=== PATIENT | female | born 1975 | race Caucasian/White ===

== ENCOUNTER 2020-06-30 12:09 | Outpatient (CLI) | payer OTHER, SELFPAY ==
--- NOTE | ~2020-06-30 | MMUS_ITS ---
EXAMINATION: MM diagnostic dm BI w phani, US breast BI complete HISTORY: Bilateral nipple discharge TECHNIQUE: ML, MLO and cc 3-D tomosynthesis images of both breasts and additional bilateral spots wer e performed and synthetic 2-D images were generated. CAD analysis was submitted and interpreted. High resolution bilateral complete breast ultrasound was performed. COMPARISON: None BREAST PARENCHYMAL COMPOSITION: The breasts are heterogeneously dense, which may obscure small masses . FINDINGS: MAMMOGRAPHIC FINDINGS: A 5 mm circumscribed opacity is noted posteriorly in the upper outer right breast. Otherwise no suspicious mass or architectural distortion, malignant calcification, skin thickening or retraction of either breast is evident. Due to the heterogeneous dense stroma, bilateral complete breast ultrasound examination was performed . ULTRASOUND: Right breast: 11:00: 3.7 x 4.6 x 4.4 mm hypoechoic lesion without internal vascularity or posterior features. Cristin ns are not completely circumscribed and the lesion is mildly antiparallel. Ultrasound-guided aspirati on or biopsy is recommended. 2:00: 2.4 mm sonolucency, likely a small cyst 3:00: Parallel circumscribed 4.0 x 1.5 x 2.3 mm minimally sonolucent lesion. No suspicious shadowing. . Left breast: No suspicious mass or shadowing. IMPRESSION: 1. Incompletely circumscribed hypoechoic antiparallel 4.6 mm lesion of right breast at 11:00 2. Ultrasound-guided aspiration or biopsy of right breast 11:00 lesion is recommended BI-RADS category 4, suspicious findings. Dr. Nicholas telephoned the report and ultrasound guided aspiration or biopsy recommendation to Julio César [employer] Systems Management Consultant , on 06/30/2020 at 1434 hours Reviewed, dictated and finalized at location A. L ASSEMBLER IMPRESSION: 1. Incompletely circumscribed hypoechoic antiparallel 4.6 mm lesion of right br east at 11:00 2. Ultrasound-guided aspiration or biopsy of right breast 11:00 lesion is recom mended BI-RADS category 4, suspicious findings. Dr. Nicholas telephoned the report and ultrasound guided aspiration or biopsy recom mendation to Kaylee, Polysomnographer , on 06/30/2020 at 1434 hours
== END 2020-06-30 12:10 | disposition home or self-care (01) ==
LOC: ANHIMG 12:14
PROVIDERS: PCP Nurse Practitioner Obstetrics & Gynecology; Visit Provider Nurse Practitioner Obstetrics & Gynecology
DX: N64.52 Nipple discharge (principal); R92.8 Other abnormal and inconclusive findings on diagnostic imaging of breast
CPT/HCPCS: 76641; 77062; 77066; G0279

== ENCOUNTER → 2020-10-17 03:04 | Outpatient (CLI) | payer OTHER, SELFPAY ==
[2020-10-17 18:14] LABS: SARS-CoV-2 RNA PCR Negative
== END ==
PROVIDERS: PCP Nurse Practitioner Obstetrics & Gynecology; Visit Provider Obstetrics & Gynecology
DX: Z01.812 Encounter for preprocedural laboratory examination (principal); Z20.822 Contact with and (suspected) exposure to COVID-19
CPT/HCPCS: C9803; U0003; U0005

== ENCOUNTER 2020-10-20 01:18 | Day surgery (SDC) | payer SELFPAY ==
[2020-10-09 12:08] VITALS: BMI 20.2
[2020-10-20 06:29] VITALS: BP 113/67; PULSE 91; RESP 20; TEMP 36.6; O2SAT 100
--- NOTE | 2020-10-20 06:47 | WPDANESEPPF ---
Anes - Initial Pre Proc Eval Procedure: Operation Date: 10/20/20 07:30 Proposed Procedures p Hysteroscopy, Dilation and Curettage, Luda Endometrial Ablation - Willis Johnson MD Date/Time: 10/20/20 06:47 Surgeon: Willis Johnson MD Pre Op Diagnosis: menorrhagia Patient Data Age: 45 Gender: F Height: 5 ft 3 in Weight: 52 kg Allergies Allergy/AdvReac Type Severity Reaction Status Date / Time No Known Allergies Allergy Mild Unverified 10/20/20 06:18 Home Medications Medication Instructions Recorded Confirmed Type No Home Medications 10/09/20 10/20/20 History Patient hx anesthesia problems: none Family hx anesthesia problems: none [facility] Past Medical History Medical History (Updated 10/20/20 @ 06:47 by Salvatore Jenkins MD) Polysubstance (excluding opioids) dependence, daily use Social History Social History Smoking packs per day: 0.75 Smoking cigarettes per day: 15.0 Years smoked: 28 Smoking pack-years: 21.00 Smoking status: Current every day smoker Tobacco type: cigarettes Alcohol intake: current Alcohol use details: 3 SHOTS/NIGHT Substance use: current Substance use type: marijuana Other substance usage details: SMOKE Last use: 10/09/20 Living arrangements: with family Spiritual care concerns: No Anes - Eval Final PreProcedure Day of Procedure 10/20/20 06:47 Patient weight: normal Heart: regular rate and rhythm Lungs: decreased breath sounds Airway: Mallampati scale class 1 Neurological: alert and oriented Last oral intake: >/= 8 hours ASA classification: III Emergent: no Anesthetic plan: proceed Anesthesia type and monitoring: general GIVS and standard monitoring Informed Consent: The patient's anesthetic plan and its attendant risks and benefits were discussed with the patient/family/POA. Questions were solicited and answers provided to the satisfaction of the patient/family/POA.
[2020-10-20] MEDS: LACTATED RINGERS 1,000 ML 30 ML IV CONT (07:01)
[2020-10-20] MEDS: ACETAMINOPHEN 500 MG TABLET 1000 MG PO (07:08)
--- NOTE | 2020-10-20 07:15 | WPDHPUPDATE1 ---
History and Physical Update Update Date/Time: 10/20/20 07:15 History and Physical has been reviewed, including an updated exam of the patient. There are NO changes in the patient's condition. Risks, benefits, and alternatives have been discussed and questions answered. Patient agrees to proceed with procedure.
[2020-10-20] MEDS: LIDOCAINE HCL 1% LOCAL INJ 10 ML VIAL 50 ML INFILTRATE (07:44)
[2020-10-20 07:56] VITALS: BP 129/88; PULSE 76; RESP 16; O2SAT 100
[2020-10-20] MEDS: fentaNYL CITRATE INJ (*CRX) 100 MCG/2 ML VIAL 25 MCG IV PUSH ×4 (08:00→08:17)
--- NOTE | 2020-10-20 08:14 | P.OP_ITS ---
Procedure Note - Detailed Date of procedure: 10/20/20 Pre-op diagnosis: menorrhagia Post-op diagnosis: same Procedure performed: Hysteroscopy, endometrial ablation Description of procedure: The patient was taken the operating room. She has pr epped and draped in the dorsal lithotomy position. Speculum was placed the vagina. The cervix grasped with a tenaculum. The cervix was injected at 3 and 9:00 a.m. with 1% lidocaine. The hysteroscope was inserted the intrauterine cavity through the cervix. The above findings were noted. The hysteroscope and uterine sound were used to calculate endometrial cavity length. The endometrial cavity length was entered into the device hand piece. The device was placed in the intrauterine cavity and the array was expanded. The balloon cuff was inflated. The power and safety checks were initiated. Never completed the array was collapsed and the balloon cuff was collapsed. The device was withdrawn. The hysteroscope was inserted back into the intrauterine cavity and well desiccated endometrial cavity was observed. The speculum was removed. The tenaculum was removed. The patient tolerated procedure well. She is take covering stable condition. Anesthesia: MAC Surgeon: Willis Johnson MD Estimated blood loss (mL): 15 Drains: No Packing: No Pathology: yes Complications: No immediate complications Condition: stable Disposition: PACU Findings: Normal appearing vulva vagina and cervix., normal-appearing intrauterine cavity.
[2020-10-20 08:20] VITALS: BP 113/72; PULSE 84; RESP 16; O2SAT 99
[2020-10-20] MEDS: oxyCODONE HCL (*CRX) 5 MG TAB IR PO (08:30)
[2020-10-20] MEDS: KETOROLAC 30 MG/ML VIAL (*BKC) IV PUSH (08:44)
[2020-10-20 08:50] VITALS: BP 139/82; PULSE 75; RESP 14
[2020-10-20 09:10] VITALS: BP 157/91; PULSE 66; RESP 14
== END 2020-10-20 09:22 | disposition home or self-care (01) ==
PROVIDERS: PCP Nurse Practitioner Obstetrics & Gynecology; Visit Provider Obstetrics & Gynecology
PROC: 0U5B8ZZ Destruction of Endometrium, Via Natural or Artificial Opening Endoscopic (ICD-10-PCS; CPT 58563; principal; 2020-10-20 07:30)
DX: N92.0 Excessive and frequent menstruation with regular cycle (principal); F17.210 Nicotine dependence, cigarettes, uncomplicated; F19.20 Other psychoactive substance dependence, uncomplicated; F12.90 Cannabis use, unspecified, uncomplicated
CPT/HCPCS: 58563; A9270; J1885; J2250; J2405; J2704; J3010; J7030; J7120